=== PATIENT | female | born 1960 | race Caucasian/White ===

== ENCOUNTER 2018-11-13 07:48 | Emergency (ER) | payer OTHER ==
[2018-11-13 07:58] VITALS: BP 146/86
--- NOTE | 2018-11-13 08:11 | UC ---
Lower Extremity/Ankle HPI - HPI Summary HPI Summary: Ms. Hong had a very active day yesterday with some exercise classes as well as walking downtown. She noticed some pain in her left foot walking back home and it is swollen this morning. It hurts to walk on it - History of Current Complaint Chief Complaint: UCLowerExtremity Stated Complaint: FOOT INJURY Time Seen by Provider: 11/13/18 08:04 Pain Intensity: 7 - Allergies/Home Medications Allergies/Adverse Reactions: Allergies Allergy/AdvReac Type Severity Reaction Status Date / Time Sulfa (Sulfonamide Allergy Rash Verified 11/13/18 07:58 Antibiotics) Home Medications: Home Medications Denavir 1 applic TOPICAL DAILY PRN 11/13/18 [History Confirmed 11/13/18] Estradiol [Imvexxy] 10 mcg VG WEEKLY 11/13/18 [History Confirmed 11/13/18] Ibuprofen TAB* [Advil TAB*] 200 mg PO Q6H PRN 11/13/18 [History Confirmed ] Magnesium [Magnesium Elemental] 30 mg PO DAILY 11/13/18 [History Confirmed 11/13] PMH/Surg Hx/FS Hx/Imm Hx Previously Healthy: Yes - Surgical History Surgical History: Yes Surgery Procedure, Year, and Place: L knee surgery - Family History Known Family History: Positive: Renal Disease - denies [facility] of renal disorder or UTI - Social History Alcohol Use: Daily Alcohol Amount: 1/day Substance Use Type: None Smoking Status (MU): Never Smoked Tobacco Review of Systems All Other Systems Reviewed And Are Negative: Yes Musculoskeletal: Positive: Edema Physical Exam - Summary Physical Exam Summary: She is nontoxic in appearance with stable vital signs Triage Information Reviewed: Yes Appearance: Well-Appearing Vital Signs: Initial Vital Signs Temp 97.4 F 11/13/18 07:51 Pulse 92 11/13/18 07:51 Resp 16 11/13/18 07:51 BP 146/86 11/13/18 07:51 Pulse Ox 97 11/13/18 07:51 Vital Signs Reviewed: Yes Musculoskeletal Exam: Other - She has some mild swelling and tenderness over the dorsum of her distal foot. This is in the area of the second third and fourth metatarsals. Diagnostics - Radiology left foot Radiology Interpretation Completed By: Radiologist Summary of Radiographic Findings: No acute process Lower Extremity Course/Dx - Course Course Of Treatment: There is no stress fracture. This seems more an overuse syndrome and I recommended staying off of it as much as possible. Icing and elevating it. She is placed in an Miko wrap and a postop shoe as she does not want crutches. - Differential Dx/Diagnosis Provider Diagnosis: Injury of foot, left Discharge ED - Sign-Out/Discharge Documenting (check all that apply): Patient Departure All imaging exams completed and their final reports reviewed: Yes - Discharge Plan Condition: Stable Disposition: HOME Patient Education Materials: Foot Sprain (ED) Referrals: Monica Peters MD [Primary Care Provider] - - Billing Disposition and Condition Condition: STABLE Disposition: Home
== END 2018-11-13 09:22 | disposition home or self-care (01) ==
LOC: UCEAST 07:48
DX: S99.922A Unspecified injury of left foot, initial encounter (principal); Z88.2 Allergy status to sulfonamides; Y93.B9 Activity, other involving muscle strengthening exercises; X58.XXXA Exposure to other specified factors, initial encounter; Y92.9 Unspecified place or not applicable
CPT/HCPCS: 99213; G0463